=== PATIENT | male | born 1970 | race Caucasian/White ===

== ENCOUNTER 2022-01-04 10:29 | Observation (INO) | payer OTHER, SELFPAY ==
[2022-01-04] VITALS (10 sets, daily range): BP systolic 62–128; BP diastolic 49–87; PULSE 70–123; RESP 13–21; TEMP 36.5–36.7; O2SAT 94–98; BMI 33.5; BMI 31.2
--- NOTE | 2022-01-04 11:03 | XR_ITS ---
WS: [id number] Exam: XR chest 1V portable [id number] Date/Time of Exam: 01/04/2022 11:29 AM Reason For Exam: tachycardia Comparison 01/18/2014. Findings: The lungs are clear and fully expanded. Costophrenic angles are sharp. No infiltrates. Bronchovascula r relief appears normal. Cardiac silhouette is unremarkable. Bony elements are intact. XR/XR chest 1V portable [id number] IMPRESSION: Unremarkable chest radiograph.
--- NOTE | 2022-01-04 11:03 | W.ED.DIZZY ---
HPI - Dizziness General: Chief Complaint: Dizziness Stated Complaint: passing blood, weaknes, pain in arms, chest pains Time Seen by Provider: 01/04/22 11:02 History of Present Illness: HPI Narrative: Mr Bains is a 51-year-old gentleman with history of hypertension, stroke, diabetes, and remote history of gastric ulcers diagnosed on EGD who presents to the emergency department due to concern over GI bleed. He reports a few week history of dark black stools and progressive weakness with generalized malaise. He has had some lightheaded episodes and chest pain as well as muscle aches. He Course Vital Signs: Vital signs: Vital Signs Temperature 97.8 F 01/04/22 10:45 Pulse Rate 70 01/04/22 10:45 Respiratory Rate 18 01/04/22 10:45 Blood Pressure 62/49 01/04/22 10:45 Pulse Oximetry 98 01/04/22 10:45 Discharge Plan Discharge Condition: Stable Coding Level of Care Code ED Coal Equipment Operator for Rosalinda Choe
--- NOTE | 2022-01-04 11:04 | ECG_ITS ---
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 Measurements Intervals [place] Rate: 112 P: 58 CA: 150 QRS: 73 QRSD: 105 T: 146 QT: 319 QTc: 436 Interpretive Statements SINUS TACHYCARDIA NONSPECIFIC ST & T-WAVE ABNORMALITY No previous ECG available for comparison Electronically Signed On 01-05-2022 11:14:03 CDT by Letty Phelan M.D. [id number]
[2022-01-04] MEDS: pantoprazole 40 mg SDV 80 MG IVP (11:13)
[2022-01-04 11:16] LABS: Basophils # 0.1 10^3/uL (0.0-0.1); Basophils % 0.4 %; Eosinophils # 0.1 10^3/uL (0.0-0.8); Eosinophils % 0.4 %; Hematocrit 28.1 % (42.0-52.0); Hemoglobin 8.9 g/dL (11.7-16.6); Lymphocytes # 3.8 10^3/uL (0.8-4.8); Mean Corpuscular HGB Conc 31.7 g/dL (30.0-36.0); Mean Corpuscular Hemoglobin 32.6 pg (28.0-34.0); Mean Corpuscular Volume 102.9 fl (80-94); Mean Platelet Volume 9.7 fL (7.4-10.4); Monocytes # 1.3 10^3/uL (0.2-0.9); Monocytes % 8.1 %; Neutrophils # 11.14 10^3/uL (1.8-7.7); Neutrophils % 67.1 %; Nucleated Red Blood Cells % 0.1 %; Platelet Count 343 10^3/cmm (130-400); Red Blood Count 2.73 10^6/uL (4.1-5.3); Red Cell Distribution Width 13.3 % (12.1-15.1); White Blood Count 16.6 10^3/uL (4.0-10.0)
[2022-01-04] MEDS: sodium chloride 0.9% 1,000 ML 999 ML IV (11:17)
--- NOTE | 2022-01-04 11:19 | W.ED.GIBLEED ---
HPI - GI Bleed General: Chief complaint: Dizziness Stated complaint: passing blood, weaknes, pain in arms, chest pains Time Seen by Provider: 01/04/22 11:02 History of Present Illness: Mr Bains is a 51-year-old gentleman with history of hypertension, stroke, diabetes, and remote history of gastric ulcers diagnosed on EGD who presents to the emergency department due to concern over GI bleed. He reports a few week history of dark black stools and progressive weakness with generalized malaise. He has had some lightheaded episodes and chest pain as well as muscle aches. This morning he went to get up and had a near syncopal episode associated with vomiting of black coffee-ground type material. He felt significantly ill after this and has not felt well since. He reports large volume emesis once getting to the emergency department. Overall the course of symptoms has been worsening. Intensity is moderate to severe. No other specific changes in health, exacerbating, or alleviating factors identified. Patient does report history remotely of EGD but denies history of known varices. The patient does consume aspirin daily and does drink daily. Reportedly when he was not working he drank 18-30 beers per day and now is more in the 6-12 range. Patient was found to be hypotensive in triage those this improved with laying flat. Onset (ago): week(s) Pain Consistency: intermittent Severity: severe Relieving factors: none Exacerbating factors: movement Context: history of GI bleed and alcohol abuse Associated symptoms: Reports abdominal pain, nausea, vomiting and weakness Review of Systems General: Reports: 10 or more systems reviewed and unremarkable except in HPI and below GI: Reports: abdominal pain, nausea and vomiting [facility] ED PFSH: Medical History (Updated 01/07/22 @ 00:01 by ) Abdominal wall hernia Abnormal findings on esophagogastroduodenoscopy (EGD) Gastric ulcer Cervicalgia Diabetes Duodenal ulcer HTN (hypertension) Stroke Surgical History (Updated 01/06/22 @ 10:57 by Feliz Pearson MD) H/O esophagogastroduodenoscopy (~01/05/22) Social History Alcohol intake: current Physical Exam Const: COMMON NORMALS: alert GENERAL APPEARANCE: cooperative, well developed and ill appearing HENMT: COMMON NORMALS: normocephalic and atraumatic HEAD & SCALP: normocephalic and atraumatic Eye: COMMON NORMALS: conjunctivae normal CONJUNCTIVA: Yes conjunctivae normal SCLERA: sclerae normal Neck/C-Spine: COMMON NORMALS: supple GENERAL: Yes trachea midline Resp: COMMON NORMALS: clear to auscultation bilaterally EFFORT & INSPECTION: Yes able to speak in complete sentences AUSCULTATION: clear to auscultation bilaterally Cardio: COMMON NORMALS: regular rhythm RATE: tachycardic RHYTHM: regular rhythm GI: COMMON NORMALS: Soft to palpation PALPATION: Yes Soft to palpation, Yes Tenderness to palpation present (GI), No Guarding due to palpation present (GI) and No Rigid due to palpation PERCUSSION: normal to percussion RECTAL EXAM: Yes normal sphincter tone and Yes heme positive stool (Oily black stool. Performed with information assurance specialist present.) Extremity: GENERAL: Yes normal exam except as noted and No edema Neuro: COMMON NORMALS: moves all extremities SENSORIUM/ORIENTATION: Yes alert and No Orientation impaired Psych: COMMON NORMALS: mental status grossly normal and Normal thought process present THOUGHT PROCESS: Normal thought process present Course ED course: - Patient was seen and evaluated by me at bedside - Patient placed on cardiac monitors, IV access obtained - Initial evaluation notable for exam as above, ill appearance. - Labs and xrays personally interpreted by me EKG performed at 1106 interpreted by me; sinus tachycardia with nonspecific ST segment abnormalities. No STEMI. -IV fluids ordered. Given history of daily alcohol consumption and limited information regarding history Protonix, octreotide, and Rocephin ordered - Labs notable for leukocytosis, hemoglobin 8.9with macrocytosis noted. Normal INR, no use of anticoagulation. Metabolic panel with elevated BUN and elevated lactic acid. Gastric occult blood negative. - Imaging notable for no pneumothorax or lobar consolidation. CT abdomen pelvis without acute pathology identified, there is fluid distention of the stomach. Liver reported as normal morphology and size without evidence of varices. - Upon serial reexamination after treatment the patient was improved - Based on patient history, evaluation, and testing as interpreted the most likely cause of the patient's condition is upper GI hemorrhage. Discussed with GI on-call Dr. Pearson who will see the patient. - The results of ED evaluation were discussed with the patient including plan for admission due to requirement for level of care not available if discharged to prevent significant worsening/deterioration. - Admitting service was contacted and Dr Alvarez with the hospitalist service agreed to admit the patient - Patient was admitted without further deterioration or significant events. Note: Click bubbles or prepopulated kamara in note writing are used for assistance with data collection and billing and are inherently more limited than narrative and other text portions of this note. Please use narrative for additional clinical history and defer to narrative/free test for any case of contradictory information. If information appears in only free text or click bubble it should be considered present or absent as reported. Please contact note typewriter tester for clarifications of clinical information or contradictory information. MDM is a brief summary, contradictory or erroneous seeming information should be clarified and full note should be reviewed. Vital Signs: Vital signs: Vital Signs Temperature 98.1 F 01/06/22 12:06 Pulse Rate 71 01/06/22 12:06 Respiratory Rate 18 01/06/22 12:06 Blood Pressure 124/71 01/06/22 12:06 Pulse Oximetry 94 01/06/22 12:06 MDM - GI Bleed Medical Decision Making 51-year-old gentleman with history of alcohol abuse without known history of GI bleed, cirrhosis, or varices presenting with hematemesis and acute history of black stools. Initially hypotensive in triage however this improved without acute intervention. Patient noted to be anemic however no recent baseline. No evidence of cirrhosis or varices on CT scan. Black oliy guaiac positive stool present. Admitted for further management with GI consult for endoscopy.. Medical Records I reviewed the patient's medical records. Lab Data I reviewed the patient's lab results. : 01/06/22 09:15 01/06/22 03:58 Radiology Impressions Chest X-Ray 01/04/22 11:03 IMPRESSION: Unremarkable chest radiograph. Abdomen/Pelvis CT 01/04/22 11:23 IMPRESSION: 1. No acute intra-abdominal pelvic abnormalities are identified. 2. Mild inflammatory stranding in the fat through the umbilical hernia. This finding can be seen with acute fat necrosis. 3. Normal appendix. 4. No GI tract obstruction. 5. Marked fluid distention of the stomach. Consider gastroenteritis as a possible etiology. Laboratory Results WBC 16.6 10^3/uL (4.0-10.0) H 01/04/22 11:07 RBC 2.73 10^6/uL (4.1-5.3) L 01/04/22 11:07 Hgb 8.9 g/dL (11.7-16.6) L 01/04/22 11:07 Hct 28.1 % (42.0-52.0) L 01/04/22 11:07 MCV 102.9 fl (80-94) H 01/04/22 11:07 MCH 32.6 pg (28.0-34.0) 01/04/22 11:07 MCHC 31.7 g/dL (30.0-36.0) 01/04/22 11:07 RDW 13.3 % (12.1-15.1) 01/04/22 11:07 Plt Count 343 10^3/cmm (130-400) 01/04/22 11:07 MPV 9.7 fL (7.4-10.4) 01/04/22 11:07 Neut % (Auto) 67.1 % 01/04/22 11:07 Lymph % (Auto) 23.0 % 01/04/22 11:07 [place] % (Auto) 8.1 % 01/04/22 11:07 Eos % (Auto) 0.4 % 01/04/22 11:07 Baso % (Auto) 0.4 % 01/04/22 11:07 Neut # (Auto) 11.14 10^3/uL (1.8-7.7) H 01/04/22 11:07 Lymph # (Auto) 3.8 10^3/uL (0.8-4.8) 01/04/22 11:07 [place] # (Auto) 1.3 10^3/uL (0.2-0.9) H 01/04/22 11:07 Eos # (Auto) 0.1 10^3/uL (0.0-0.8) 01/04/22 11:07 Baso # (Auto) 0.1 10^3/uL (0.0-0.1) 01/04/22 11:07 Nucleated RBC % (auto) 0.1 % 01/04/22 11:07 Nucleated RBCs # 0.0 /100WBC 01/04/22 11:07 Sodium 139 mmol/L (136-145) 01/04/22 11:07 Potassium 4.3 mmol/L (3.5-5.1) 01/04/22 11:07 Chloride 106 mmol/L (98-107) 01/04/22 11:07 Carbon Dioxide 21 mmol/L (22-29) L 01/04/22 11:07 Anion Gap 16.3 (5-19) 01/04/22 11:07 BUN 49 mg/dL (6-20) H 01/04/22 11:07 Creatinine 1.0 mg/dL (0.7-1.2) 01/04/22 11:07 GFR Calculation 79.1 mL/min (90-130) L 01/04/22 11:07 Glucose 296 mg/dL (65-115) H 01/04/22 11:07 Estimat Average Glucose 105 01/04/22 11:07 Hemoglobin A1c 5.3 % (4.0-6.0) 01/04/22 11:07 Calculated Osmolality 312 mOsm/kg (285-295) H 01/04/22 11:07 Lactic Acid 5.6 mmol/L (0.5-2.2) H* 01/04/22 11:07 Calcium 9.1 mg/dL (8.5-10.5) 01/04/22 11:07 Magnesium 2.3 mg/dL (1.7-2.3) 01/04/22 11:07 Total Bilirubin 0.2 mg/dL (0.15-1.2) 01/04/22 11:07 AST 13 U/L (0-40) 01/04/22 11:07 ALT 13 U/L (0-41) 01/04/22 11:07 Alkaline Phosphatase 74 IU/L (40-130) 01/04/22 11:07 Troponin T Baseline 21 ng/L (0-15) H 01/04/22 11:07 NT-Pro-B Natriuret Pep 58 pg/mL (0-125) 01/04/22 11:07 Total Protein 5.5 g/dL (6.6-8.7) L 01/04/22 11:07 Albumin 3.7 g/dL (3.5-5.2) 01/04/22 11:07 Globulin 1.8 g/dL (1.3-4.6) 01/04/22 11:07 TSH 1.25 uIU/mL (0.27-4.20) 01/04/22 11:07 Gastric Occult Blood Negative (Negative) 01/04/22 11:46 SARS-CoV-2 Ag (Rapid) Negative (Negative) 01/04/22 11:26 Blood Type O Positive 01/04/22 11:07 Rho(D) Type Positive 01/04/22 11:07 Antibody Screen Negative 01/04/22 11:07 Crossmatch See Detail 01/04/22 11:07 Critical Care Time Critical Care Time: Critical Care Time: Yes Total Critical Care Time: 35 Attestation: Due to a high probability of clinically significant, possibly life threatening deterioration, the patient required my highest level of attention and preparedness to intervene emergently and I personally spent this critical care time directly and personally managing the patient. This critical care time included obtaining a history; examining the patient; pulse oximetry; ordering and review of laboratory and imaging studies; arranging urgent treatment with development of a management plan; evaluation of patient's response to treatment; frequent reassessment; and, discussions with other providers as applicable. It was exclusive of separately billable procedures. Primary system involved is GI/vascular Discharge Plan Discharge Patient Disposition: Admitted As Inpatient Admit Provider: Radha Alvarez Clinical Impression: Acute GI bleeding, Alcohol abuse, Leukocytosis, Acute blood loss anemia, Elevated lactic acid level Condition: Stable Discharge Diet: Cardiac Discharge Activity: Increase activity as tolerated Coding Level of Care Code ED Hotel Associate for Rosalinda Fwd Exam Comprehensive
--- NOTE | 2022-01-04 11:23 | CT_ITS ---
WS: [id number] CT ABDOMEN AND PELVIS WITH CONTRAST HISTORY: gi bleed, hematemesis, hernia, periumbilical pain TECHNIQUE: Imaging performed of the abdomen and pelvis with IV contrast. Single phase imaging of the abdomen. Coronal and sagittal reformats are submitted. All CT scans at [facility] use at [facility] one of these dose optimization techniques: automated exposure control; mA and/or kV adjustment per patient size (includes targeted exams where dose is matched to clinical indication); or iterative re construction. IV CONTRAST: Omnipaque 300; 95 mL IV. Oral contrast: No DLP: 1821.58 mGy.cm COMPARISON: 10/27/2013 Lower thorax: Long-term stability 4 mm noncalcified nodule LEFT lung base. Heart is normal size. No h iatal hernia. Liver/biliary system: Normal size with no intrahepatic dilatation. Negative portal vein. Gallbladder: Normal. No gallstones or wall thickening. No pericholecystic fluid. Pancreas: Normal size pancreas and pancreatic duct. No adjacent inflammation. Spleen: Normal size spleen. No mass or infarct. Adrenal glands: Normal. Right kidney: Normal. Left kidney: Normal. Aorta: Normal. Lymphadenopathy: None. Free fluid: None. GI tract: Stomach is markedly distended with fluid and food products. No small bowel obstruction. The appendix is normal. Colon is normal. Abdominal wall: Fat-containing umbilical hernia. There is mild stranding of the fat within the umbili tom hernia which may indicate an area of fatty necrosis. The hernia orifice is 3.2 cm. Pelvis: No free fluid or adenopathy within the pelvis. Bones: 6 mm anterolisthesis of L5 and bilateral pars defects at L5. Large dense bridging osteophyte b etween the anterior L5 and S1 vertebral bodies. Bilateral SI joint sclerosis and partial fusion. CT/CT abdomen pelvis w con* [id number] IMPRESSION: 1. No acute intra-abdominal pelvic abnormalities are identified. 2. Mild inflammatory stranding in the fat through the umbilical hernia. This f inding can be seen with acute fat necrosis. 3. Normal appendix. 4. No GI tract obstruction. 5. Marked fluid distention of the stomach. Consider gastroenteritis as a possi ble etiology.
[2022-01-04] MEDS: octreotide 100 mcg/mL SDV 50 MCG IVP (11:31)
[2022-01-04] MEDS: cefTRIAXone 1,000 MG in sodium chloride 0.9% (plus) 50 ML 100 MG IV (11:34)
[2022-01-04 11:39] LABS: Alanine Aminotransferase 13 U/L (0-41); Albumin Level 3.7 g/dL (3.5-5.2); Alkaline Phosphatase 74 IU/L (40-130); Anion Gap 16.3 (5-19); Aspartate Amino Transferase 13 U/L (0-40); Blood Urea Nitrogen 49 mg/dL (6-20); Calcium 9.1 mg/dL (8.5-10.5); Carbon Dioxide 21 mmol/L (22-29); Chloride 106 mmol/L (98-107); Globulin 1.8 g/dL (1.3-4.6); Glomerular Filtration Rate 79.1 mL/min (90-130); Glucose 296 mg/dL (65-115); Magnesium 2.3 mg/dL (1.7-2.3); Osmolality Calculated 312 mOsm/kg (285-295); Potassium 4.3 mmol/L (3.5-5.1); Sodium 139 mmol/L (136-145); Total Bilirubin 0.2 mg/dL (0.15-1.2); Total Protein 5.5 g/dL (6.6-8.7); Troponin(5th) Baseline 21 ng/L (0-15)
[2022-01-04] MEDS: octreotide 500 MCG in sodium chloride 0.9% (100 ml) 100 ML 10.1 MCG IV (11:41)
[2022-01-04 11:49] LABS: Lactic Sepsis W/Reflex 5.6 mmol/L (0.5-2.2)
[2022-01-04] MEDS: iohexol 300 mg/mL 100 mL Btl IV (11:51)
[2022-01-04 12:00] LABS: NT Pro B Type Natriuretic Pept 58 pg/mL (0-125); Thyroid Stimulating Hormone 1.25 uIU/mL (0.27-4.20)
[2022-01-04 12:10] LABS: Gastricult Occult Blood Negative (Negative)
[2022-01-04 12:16] LABS: SARS Covid-2 Antigen Negative (Negative)
[2022-01-04 12:58] LABS: Reflex Lactate Order REFLEX LACTIC ORDERD
[2022-01-04] MEDS: ondansetron 2 mg/ML SDV 2 mL 4 MG IVP (13:20)
[2022-01-04] MEDS: morphine 4 mg/mL SDV 1 mL IVP (13:21)
[2022-01-04 14:28] LABS: Troponin 5 2HR 18.04 ng/L (0-15)
[2022-01-04 14:30] LABS: Troponin 5 2HR Delta -2.96 ABS# (0-10)
--- NOTE | 2022-01-04 14:37 | PC.NURSE ---
PT REQUESTS WATER INFORMED DR. JEANNE KRAUSE TO GIVE PT ICE CHIPS. ICE CHIPS PROVIDED TO PT.
--- NOTE | 2022-01-04 14:41 | PC.NURSE ---
ATTEMPTED REPORT NURSE UNAVAILABLE.
[2022-01-04 14:49] LABS: Lactic Acid level (Lactate) 1.9 mmol/L (0.5-2.2)
--- NOTE | 2022-01-04 15:41 | PC.NURSE ---
REPORT CALLED TO NETO STREETLOG CLERK.
[2022-01-04 16:07] LABS: INR 1.02 (0.8-1.2)
--- NOTE | 2022-01-04 16:28 | PM.HP ---
Providers/Chief Complaint Admitting Physician: Radha Alvarez MD Chief Complaint: passing blood, weaknes, pain in arms, chest pains History of Present Illness Davis Bains is a 51 year old male who carries history of gastric ulcer, alcohol-related gastritis, EGD about 10 years ago which showed gastric ulcer, he also required blood transfusion at that time, presents today with chief complaint of hematemesis. Patient is stating that he is drinking 2-4 beers a day, has history of chewing tobacco as well, no previous history of UT, CHF or liver cirrhosis. No history of STDs HIV or hepatitis. He has never been diagnosed with liver cirrhosis. For last few weeks he has been noticing some numbness and tingling over his arms bilaterally, he does carry history of cervical lumbar degenerative changes, he has no chest pain on exertion sometimes as well in the past. Lately he started getting worse which she described as feeling weak and lethargic and dizzy. This morning when he woke up he was not feeling well, he called in. When he went to the bathroom his dizziness was getting worse that he had to rest in the bed which was very unusual for him. Started experiencing hematemesis, which she is describing as dark clotted blood in his vomiting. He has been noticing dark-colored stools for quite some time. He does not take ibuprofen on daily basis. No previous colonoscopies. There is family history of GI cancer. In the ER he was diagnosed with anemia hemoglobin 8.9, he is hemodynamically stable he was started on octreotide for concern of liver cirrhosis related to alcohol however no active bleeding noted in the ER In total he has had 5-6 episodes, in the ER a sample was sent however did not show occult bleeding We can turn off octreotide drip, keep him on clear liquids for now plan for EGD tomorrow, Dr. Pearson is consulted For his chest pain would recommend echo, troponin with negative delta, Review of Systems Const: Reports: chills and body aches Eyes: Denies: change in vision ENMT: Denies: throat pain Card: Reports: chest pain and pre-syncope Resp: Denies: dyspnea GI: Reports: abdominal pain, nausea and melena : Denies: flank pain Musc: Reports: neck pain, back pain and muscle cramps Skin/Breast: Denies: rash Neuro: Denies: headache(s) Psych: Reports: anxiety Endo: Denies: polyuria Freddie/Lymph: Denies: easy bruising All/Imm: Denies: urticaria Medications/Allergies Home Medications Medication Instructions Recorded Confirmed Last Taken Type aspirin-caffeine 500 mg-32.5 mg See Rx Instructions .ROUTE .COMPLEX 01/04/22 01/04/22 Unknown History tablet ([place] [employer]) Allergies Allergy/AdvReac Type Severity Reaction Status Date / Time No Known Allergies Allergy Verified 01/04/22 11:18 PFSH Acute PFSH: Medical History (Updated 01/04/22 @ 16:34 by Radha Alvarez MD) Abdominal wall hernia Abnormal findings on esophagogastroduodenoscopy (EGD) Gastric ulcer Cervicalgia Diabetes HTN (hypertension) Stroke Surgical History No significant past surgical history Social History Alcohol intake: current Vitals/I&O/Wt Last Vital Signs Temp 97.8 F 01/04/22 10:45 Pulse 104 H 01/04/22 15:00 Resp 14 01/04/22 15:00 BP 127/73 01/04/22 14:00 Pulse Ox 98 01/04/22 15:00 01/04/22 01/04/22 01/04/22 06:59 14:59 22:59 Intake Total 1050 / 1050 Balance 1050 / 1050 Weight last 48 hrs Weight 108.862 kg Physical Exam Narrative: Patient is laying comfortably in his bed Octreotide drip at the bedside Hemodynamically stable Looks dehydrated Dry cracked lips Abdomen is soft No tenderness in upper quadrants of abdomen Umbilical hernia noted No signs of peritonitis Bowel sound present S1, S2 no murmur Saturating well on room air Nonfocal neuro exam Pleasant and cooperative Data : 01/04/22 11:07 01/04/22 11:07 A&P Assessment and plan (1) Acute GI bleeding: Status: Acute (2) Alcohol abuse: Status: Acute (3) Acute blood loss anemia: Status: Acute Plan Acute blood loss anemia Upper GI bleed Hematemesis History of gastric ulcer Alcohol abuse No signs of liver cirrhosis on CT abdomen pelvis Plan for EGD tomorrow Keep him on clear liquids until midnight N.p.o. after midnight Protonix 40 IV milligrams twice daily GI cocktail Umbilical hernia no active signs of peritonitis, fat necrosis evident on CT scan with inflammatory stranding We will follow up with general surgery recommendations Bilateral hand numbness and chest pain could be related to degenerative changes of the spine We will obtain echo, EKG unremarkable, troponin unremarkable Counseled on alcohol abstinence Start thiamine, folic acid, N.p.o. after midnight Dr. 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
--- NOTE | 2022-01-04 16:58 | USCV_ITS ---
Davis Bains Age: 51 Gender: M : 1970 Exam Date: 01/04/2022 17:35 Ordering Phys: Radha Alvarez MD Technologist: Josh Griffiths Exam Location: [facility] [place] Indication: UA BP: 109 / 78 HR: 102 Rhythm: Sinus Technical Quality: Adequate MEASUREMENTS (Male / Female) Normal Values 2D ECHO LV Diastolic Diameter PLAX 3.8 cm 4.2 - 5.9 / 3.9 - 5.3 cm LV Systolic Diameter PLAX 2.7 cm IVS Diastolic Thickness 1.1 cm 0.6 - 1.0 / 0.6 - 0.9 cm IVS Systolic Thickness 1.6 cm LVPW Diastolic Thickness 1.5 cm 0.6 - 1.0 / 0.6 - 0.9 cm LVPW Systolic Thickness 1.7 cm LVOT Diameter 2.0 cm LV Ejection Fraction 2D Teich 55.0 % LV Ejection Fraction MOD 2C 67.8 % LV Ejection Fraction 2C AL 67.8 % LA Diameter 3.4 cm LA Width 3.6 cm LA Height 4.7 cm RA Width 3.1 cm RA Height 3.5 cm Aorta at Sinotubular Diameter 2.8 cm M-MODE Aortic Annulus Diameter 3.4 cm LA Ao Ratio MM 1.1 DOPPLER AV Peak Velocity 161.0 cm/s LVOT Peak Velocity 149.0 cm/s AV Area Cont Eq vti 2.6 cm squared AV Area Cont Eq pk 2.9 cm squared MV E' Velocity 9.0 cm/s TR Peak Velocity 134.9 cm/s TR Peak Gradient 7.3 mmHg TR Mean Velocity 106.1 cm/s TR Mean Gradient 4.7 mmHg TR Velocity Time Integral 24.8 cm Right Atrial Pressure 3.0 mmHg Pulmonary Artery Systolic Pressu 10.3 mmHg RV Acceleration Time 0.1 s RV Ejection Time 0.2 s RV AcT/ET 0.4 FINDINGS Left Ventricle Normal left ventricular size and systolic function, EF 71 %. Mild left ventricular hypertrophy. No regional wall motion abnormalities. Right Ventricle Normal right ventricular size and systolic function. Right Atrium The right atrium is normal in size. Left Atrium The left atrium is normal in size. Mitral Valve Thickened mitral valve. Aortic Valve The valve appears to be tricuspid. There is flow turbulence at the outflow tract. Tricuspid Valve Trace tricuspid valve regurgitation. Pulmonic Valve No gross abnormalities noted Pericardium No pericardial effusion. Aorta Normal aortic annulus size. CONCLUSIONS Normal left ventricular size and systolic function, EF 71 %. Mild left ventricular hypertrophy. No regional wall motion abnormalities. Elevated LV outflow tract velocity? Thickened mitral valve. Trace tricuspid valve regurgitation. Normal estimated pulmonary artery pressure. There is no pericardial effusion. There are no intracardiac masses. Need to repeat the LV outflow tract Doppler examination to rule out LV outflow obstruction. Dr Roxane Juarez MD FAC (Electronically Signed) Final Date: 05 January 2022 13:33 S
--- NOTE | 2022-01-04 17:04 | ECG_ITS ---
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 Measurements Intervals [place] Rate: 92 P: 39 [place]: 158 QRS: 52 QRSD: 97 T: 136 QT: 351 QTc: 436 Interpretive Statements SINUS RHYTHM POSSIBLE INFERIOR MYOCARDIAL INFARCTION , PROBABLY OLD [30 ms Q WAVE IN II/aVF] Compared to ECG 01/04/2022 11:06:07 Myocardial infarct finding now present Sinus tachycardia no longer present T-wave abnormality no longer present Electronically Signed On 01-05-2022 11:21:19 CDT by Letty Phelan M.D. [id number]
[2022-01-04 17:57] LABS: Glucose Point of Care 144 mg/dL (70-110)
[2022-01-04] MEDS: pantoprazole 40 mg SDV IVP (18:24)
[2022-01-04] MEDS: sodium chloride 0.9% 1,000 ML 75 ML IV (18:24)
[2022-01-04 19:29] LABS: Add Urine Microscopic? NO; Charge for UA Resulting for Rev
[2022-01-04 19:41] LABS: Bilirubin Urine Neg (Negative); Blood Urine Neg (Negative); Glucose Urine UA Norm (Normal); Ketones Urine Negative (Negative); Leukocyte Esterase Urine Negative (Negative); Nitrate Urine Negative (Negative); Protein Urine Neg (Negative); Specific Gravity, Urine 1.015 (1.005-1.030); Urine Appearance Clear (CLEAR); Urine Color Yellow (Yellow); Urobilinogen Urine Norm (Negative); pH Urine 5 (5-7)
[2022-01-04] MEDS: acetaminophen 500 mg Tablet PO (19:48)
[2022-01-04 21:00] LABS: Hematocrit 22.5 % (42.0-52.0); Hemoglobin 7.2 g/dL (11.7-16.6)
[2022-01-04 21:03] LABS: Glucose Point of Care 208 mg/dL (70-110)
[2022-01-04 21:20] LABS: Troponin 5 6HR 15.15 ng/L (0-15)
[2022-01-04 21:21] LABS: Troponin 5 6HR Delta -5.85 ng/L (0-12)
[2022-01-04 21:34] LABS: Estmated Average Glucose 105; Hemoglobin A1C 5.3 % (4.0-6.0)
[2022-01-05] VITALS (18 sets, daily range): BP systolic 100–134; BP diastolic 54–85; PULSE 85–101; RESP 16–20; TEMP 36.4–36.9; O2SAT 96–100
[2022-01-05] MEDS: acetaminophen 500 mg Tablet PO (02:49)
[2022-01-05 03:43] LABS: Basophils % 0.3 %; Eosinophils # 0.1 10^3/uL (0.0-0.8); Eosinophils % 1.1 %; Hematocrit 21.3 % (42.0-52.0); Hemoglobin 6.8 g/dL (11.7-16.6); Lymphocytes # 2.2 10^3/uL (0.8-4.8); Lymphocytes % 24.9 %; Mean Corpuscular HGB Conc 31.9 g/dL (30.0-36.0); Mean Corpuscular Hemoglobin 31.8 pg (28.0-34.0); Mean Corpuscular Volume 99.5 fl (80-94); Monocytes # 0.9 10^3/uL (0.2-0.9); Monocytes % 9.7 %; Neutrophils # 5.52 10^3/uL (1.8-7.7); Neutrophils % 63.4 %; Nucleated Red Blood Cells % 0.2 %; Platelet Count 223 10^3/cmm (130-400); Red Blood Count 2.14 10^6/uL (4.1-5.3); Red Cell Distribution Width 13.5 % (12.1-15.1); White Blood Count 8.7 10^3/uL (4.0-10.0)
[2022-01-05 04:05] LABS: Alanine Aminotransferase 10 U/L (0-41); Albumin Level 3.2 g/dL (3.5-5.2); Alkaline Phosphatase 48 IU/L (40-130); Anion Gap 11.2 (5-19); Aspartate Amino Transferase 14 U/L (0-40); Blood Urea Nitrogen 31 mg/dL (6-20); Carbon Dioxide 23 mmol/L (22-29); Chloride 107 mmol/L (98-107); Globulin 2.2 g/dL (1.3-4.6); Glomerular Filtration Rate 89.3 mL/min (90-130); Glucose 126 mg/dL (65-115); Magnesium 1.8 mg/dL (1.7-2.3); Osmolality Calculated 292 mOsm/kg (285-295); Potassium 4.2 mmol/L (3.5-5.1); Sodium 137 mmol/L (136-145); Total Bilirubin 0.2 mg/dL (0.15-1.2); Total Protein 5.4 g/dL (6.6-8.7)
[2022-01-05 04:07] LABS: INR 1.01 (0.8-1.2); Partial Thromboplastin Time 26.1 SECONDS (23.9-36.7); Platelet Count 223 10^3/cmm (130-400)
[2022-01-05] MEDS: sodium chloride 0.9% 1,000 ML 75 ML IV (05:29)
[2022-01-05 06:26] LABS: Glucose Point of Care 133 mg/dL (70-110)
--- NOTE | 2022-01-05 06:34 | PC.NURSE ---
Patient AAOx4, c/o burning and nerve pain in hands. HGB low in AM physician notified and orders placed for transfusion. Patient OOB to bathroom with out difficulty, no BM throughout the shift. Voiding without difficulty. VSS, no safety concerns, room clean and clutter free, call light in reach. WIll report to oncoming nurse at shift change.
[2022-01-05] MEDS: octreotide 500 MCG in sodium chloride 0.9% (100 ml) 100 ML IV (06:59)
[2022-01-05] MEDS: pantoprazole 40 mg SDV IVP ×2 (08:47→17:54)
--- NOTE | 2022-01-05 10:39 | PC.CHAP ---
Pastoral Care Encounter/Spiritual Assessment Type of Contact [] Declined balancer scale visit [] Patient/Family/Request visit [] Outpatient visit [] Follow-up visit [] Physician referral [] Code/Alert [x] Routine visit [] Staff referral [] Actively dying [] Patient sleeping [] Family support [] [] Out of room [] Palliative care [] [] Receiving care in room [] Pre-surgical visit [] Trauma [] Long length of stay [] ICU visit [] Other: Relational/Emotional Strength [x] Patient feels connected with others/family/visitors/staff [] Distress [] Loneliness/isolation [] Abandonment Spirituality of Patient []x Person of Valentina [] Attends Mandaen of their Valentina [x] Believes in Prayer [] Reads Bible or Yarsani materials [] There are Spiritual issues to be addressed Make Up Worker Interventions [x Prayer [x] Active listening [x] Non-anxious presence [x] Spiritual/emotional support [] Crisis/trauma care [] Spiritual counseling [] Bereavement support [] Provided bereavement packet [] Provided Bible/devotional materials [] Provided toy/stuffed animal, coloring book to patient or family member [] Provided Communion [] Anointing/[place] [] Salvation [x] Completed spiritual assessment [] Other: Impact on Illness or Injury [] Angry [] Fearful [] Anxious [] Often cries [] Exhaustion [] Unable to work [] Unable to attend cheondoism [] Unable to walk/stand [] Unable to read [] Unable to drive [] Unable to eat/drink [] Unable to sleep [] Unable to be with family [] Patient intubated [] Other: Summary Time spent with patient 10 min
[2022-01-05] MEDS: sodium chloride 0.9% 1,000 ML 30 ML IV (10:50)
--- NOTE | 2022-01-05 11:01 | P.ANESASSM_ITS ---
Documented by User: Pranay Hand Jr, ELECTRICAL DESIGNER 01/05/22 11:06 Pre-Anesthetic Assessment Height/Weight: Height 1.85 m Weight 107.547 kg Temp Pulse Resp BP Pulse Ox 98.5 F 90 18 129/79 98 01/05/22 10:23 01/05/22 10:23 01/05/22 10:23 01/05/22 10:23 01/05/22 10:23 Preop Diagnosis: GI Bleed Operation Date: 01/05/22 12:30 Proposed Procedures p EGD(Not Applicable) - Feliz Pearson MD Familial anesthetic complications: none Was Beta Walter taken within 24 hours: N/A Was Clonidine taken within 24 hours: N/A Last intake: Intake Last Liquid Date 01/04/22 Last Liquid Time 22:00 Last Solid Date 01/03/22 Last Intake: 22:00 Social Alcohol (12 beer) and Tobacco (chew) Exam alert, oriented x 3, clear to auscultation bilaterally and regular rate & rhythm Airway Submandibular: within normal limits Cervical ROM: within normal limits Mallampati: Class II Dentition: other (poor multiple missing decayed) Pulmonary Cough (allergies) CV/HEM Anemia and Hypertension None reported Hepatic None reported GI Gastroesophageal Reflux Disease and Peptic Ulcer Disease HX GI bleed Metabolic Diabetes Mellitus (diet controlled) and None reported Musc/skel Lower Back Pain Neuropsych Anxiety and Depression Anesthetic Plan ASA status: 3 Anesthesia: MAC Other Pertinent Information PT recieved 2 units PRBC in ED before procedure Medications/Allergies Home Medications Medication Instructions Recorded Confirmed Last Taken Type aspirin-caffeine 500 mg-32.5 mg See Rx Instructions .ROUTE .COMPLEX 01/04/22 01/04/22 Unknown History tablet ([place] Back and Body) Allergies Allergy/AdvReac Type Severity Reaction Status Date / Time No Known Allergies Allergy Verified 01/04/22 11:18 Current Medications Generic Name Dose Route Start Last Admin Trade Name Freq PRN Reason Stop Dose Admin Acetaminophen 500 mg 01/04/22 16:58 01/05/22 02:49 Acetaminophen 500 Mg Tablet PO 500 mg Q4H PRN Administration fever Sodium Chloride 1,000 mls @ 30 mls/hr 01/05/22 10:45 01/05/22 10:50 Sodium Chloride 0.9% IV 01/06/22 10:44 30 mls/hr .Q24H JOSE ANGEL Administration Insulin Human Lispro 0 unit 01/04/22 21:00 01/05/22 07:01 Insulin Lispro 100 Unit/1 Ml SUBCUT Not Given WM&BEDTIME JOSE ANGEL Protocol Pantoprazole Sodium 40 mg 01/04/22 18:00 01/05/22 08:47 Pantoprazole 40 Mg Sdv IVP 40 mg BID JOSE ANGEL Administration PFSH Anesthesia Medical History Abdominal wall hernia Abnormal findings on esophagogastroduodenoscopy (EGD) Gastric ulcer Cervicalgia Diabetes HTN (hypertension) Stroke Surgical History No significant past surgical history Social History Alcohol intake: current Data Anesthesia : 01/05/22 03:05 01/05/22 03:05 Short CBC 01/04/22 01/04/22 01/05/22 Range/Units 11:07 20:45 03:05 WBC 16.6 H 8.7 (4.0-10.0) 10^3/uL Hgb 8.9 L 7.2 L 6.8 L (11.7-16.6) g/dL Hct 28.1 L 22.5 L 21.3 L (42.0-52.0) % MCV 102.9 H 99.5 H (80-94) fl Plt Count 343 223 D (130-400) 10^3/cmm Neut % (Auto) 67.1 63.4 % Neut # (Auto) 11.14 H 5.52 (1.8-7.7) 10^3/uL 01/05/22 Range/Units 03:05 WBC (4.0-10.0) 10^3/uL Hgb (11.7-16.6) g/dL Hct (42.0-52.0) % MCV (80-94) fl Plt Count 223 (130-400) 10^3/cmm Neut % (Auto) % Neut # (Auto) (1.8-7.7) 10^3/uL BMP 01/04/22 01/05/22 11:07 03:05 Sodium 139 137 Potassium 4.3 4.2 Chloride 106 107 Carbon Dioxide 21 L 23 BUN 49 H 31 H Creatinine 1.0 0.9 Glucose 296 H 126 H Calcium 9.1 8.0 L Cardiac Enzymes 01/04/22 01/04/22 01/04/22 Range/Units 11:07 11:07 13:44 Troponin T Baseline 21 H (0-15) ng/L Troponin T 120 Minute 18.04 H (0-15) ng/L Delta Troponin T -2.96 L (0-10) ABS# Troponin T Hi Sens 6Hr (0-15) ng/L Troponin T Hi Sens 6Hr Delta (0-12) ng/L NT-Pro-B Natriuret Pep 58 (0-125) pg/mL 01/04/22 Range/Units 20:45 Troponin T Baseline (0-15) ng/L Troponin T 120 Minute (0-15) ng/L Delta Troponin T (0-10) ABS# Troponin T Hi Sens 6Hr 15.15 H (0-15) ng/L Troponin T Hi Sens 6Hr Delta -5.85 L (0-12) ng/L NT-Pro-B Natriuret Pep (0-125) pg/mL Liver Function 01/04/22 01/05/22 Range/Units 11:07 03:05 Total Bilirubin 0.2 0.2 (0.15-1.2) mg/dL AST 13 14 (0-40) U/L ALT 13 10 (0-41) U/L Alkaline Phosphatase 74 48 (40-130) IU/L Albumin 3.7 3.2 L (3.5-5.2) g/dL Urine 01/04/22 Range/Units 19:24 Urine Color Yellow (Yellow) Urine Appearance Clear (CLEAR) Urine pH 5 (5-7) Ur Specific [place] 1.015 (1.005-1.030) Urine Protein Neg (Negative) Urine Glucose (UA) Norm (Normal) Urine Ketones Negative (Negative) Urine Nitrate Negative (Negative) Urine Bilirubin Neg (Negative) Ur Leukocyte Esterase Negative (Negative) Blood Bank 01/04/22 11:07 Blood Type O Positive Rho(D) Type Positive Antibody Screen Negative COVID Results 01/04/22 11:26 SARS-CoV-2 Ag (Rapid) Negative Coags 01/04/22 01/05/22 15:05 03:05 PT 13.70 13.60 INR 1.02 1.01 APTT 26.1 Fibrinogen TNP Cardiac Studies: No Data to Display
--- NOTE | 2022-01-05 11:35 | P.CONIM_ITS ---
Providers/Reason For Consult Consulting Physician/Specialty*: General Surgery Dr. Pearson Reason for Consult*: GI bleed Requesting Physician: Hospitalist service Attending Physician: Radha Alvarez MD History of Present Illness History of Present Illness Davis Bains is a 51 year old male who presented to the ER with throwing of fresh blood and black stools for a few days prior to the ER visit. Patient denies any abdominal pain. He has not had any further hematemesis since y morning when he presented to the ER. He has had multiple EGDs in the past for gastric ulcer, alcohol-related gastritis. He had a CT which did not show any evidence of portal hypertension or cirrhosis Review of Systems General: Reports: 10 or more systems reviewed and unremarkable except in HPI and below Medications/Allergies Home Medications Medication Instructions Recorded Confirmed Last Taken Type aspirin-caffeine 500 mg-32.5 mg See Rx Instructions .ROUTE .COMPLEX 01/04/22 01/04/22 Unknown History tablet ([place] Back and Body) Allergies Allergy/AdvReac Type Severity Reaction Status Date / Time No Known Allergies Allergy Verified 01/04/22 11:18 Current Medications Generic Name Dose Route Start Last Admin Trade Name Freq PRN Reason Stop Dose Admin Acetaminophen 500 mg 01/04/22 16:58 01/05/22 02:49 Acetaminophen 500 Mg Tablet PO 500 mg Q4H PRN Administration fever Sodium Chloride 1,000 mls @ 30 mls/hr 01/05/22 10:45 01/05/22 10:50 Sodium Chloride 0.9% IV 01/06/22 10:44 30 mls/hr .Q24H JOSE ANGEL Administration Insulin Human Lispro 0 unit 01/04/22 21:00 01/05/22 07:01 Insulin Lispro 100 Unit/1 Ml SUBCUT Not Given WM&BEDTIME JOSE ANGEL Protocol Pantoprazole Sodium 40 mg 01/04/22 18:00 01/05/22 08:47 Pantoprazole 40 Mg Sdv IVP 40 mg BID JOSE ANGEL Administration PFSH Acute PFSH: Medical History Abdominal wall hernia Abnormal findings on esophagogastroduodenoscopy (EGD) Gastric ulcer Cervicalgia Diabetes HTN (hypertension) Stroke Surgical History No significant past surgical history Social History Alcohol intake: current Vitals/I&O/Wt Last Vital Signs Temp 98.3 F 01/05/22 11:33 Pulse 93 01/05/22 11:33 Resp 16 01/05/22 11:33 BP 106/61 01/05/22 11:33 Pulse Ox 99 01/05/22 11:33 01/04/22 01/05/22 01/05/22 22:59 06:59 14:59 Intake Total 73.225 / 1954.475 831.25 / 1954.475 350 / 350 Output Total 300 / 520 220 / 520 Balance -226.775 / 1434.475 611.25 / 1434.475 350 / 350 Weight last 48 hrs Weight 237 lb 1.6 oz Weight 240 lb Physical Exam Narrative: HEENT: Normocephalic Eye: Sclera /conjunctiva normal Abdomen: Soft to palpation Neurological: Oriented to place person and time Skin: Intact, no lesions appreciated on gross exam Data : 01/05/22 03:05 01/05/22 03:05 A&P Assessment and plan (1) Acute GI bleedin-year-old male who usually drinks about 10-12 beers over the weekend and drinks alcohol daily who presented with hematemesis and melena. Patient was hemodynamically stable but his hemoglobin is down to 6.8 today and he is currently receiving blood transfusion. Plan for EGD under MAC. Procedure, risks, benefits and alternatives have been discussed with the patient who wishes to proceed with surgery. Status: Acute Consult Attestations Medical Necessity Statement: As per attending physician Coding Level of Care Code Acute Pharmacy Stock Clerk for [facility] Fwd Diagnoses Acute GI bleeding K92.2
--- NOTE | 2022-01-05 11:47 | PM.PN ---
Subjective Subjective: Status post EGD, duodenal ulcer, noticed drop in hemoglobin 6.8, requested to unit PRBC No active bleeding ulcer was noted as per Dr. Pearson Patient is noncompliant any active bleeding or hematochezia, melanotic stools He does carry history of diverticulitis Vitals/I&O/Wt Last Vital Signs Temp 98.3 F 01/05/22 11:33 Pulse 93 01/05/22 11:33 Resp 16 01/05/22 11:33 BP 106/61 01/05/22 11:33 Pulse Ox 99 01/05/22 11:33 01/04/22 01/05/22 01/05/22 22:59 06:59 14:59 Intake Total 73.225 / 1123.225 831.25 / 1954.475 850 / 850 Output Total 300 / 300 220 / 520 Balance -226.775 / 823.225 611.25 / 1434.475 850 / 850 Weight last 48 hrs Weight 107.547 kg Weight 108.862 kg Physical Exam Narrative: Hemodynamically stable Pale complexion Abdomen soft Nontender Distended S1, S2 Nonfocal neuro exam Saturating well on room air No signs of edema Data : 01/05/22 03:05 01/05/22 03:05 A&P Assessment and plan (1) Dehydration: Status: Acute (2) Acute GI bleeding: Status: Acute (3) Alcohol abuse: Status: Acute (4) Leukocytosis: Status: Acute (5) Acute blood loss anemia: Status: Acute Plan Acute blood loss anemia Upper GI bleed Duodenal ulcer Continue Protonix, sucralfate Full liquid diet Abstinence from alcohol For neuropathic pain added gabapentin Acute blood loss anemia status post 2 unit PRBC, Plan to discharge him tomorrow Full code diet DVT prophylaxis contraindicated Currently SCDs Echo is pending no active chest pain Hemodynamically stable Nonsignificant troponin rise Attestations Medical Necessity Statement*: Continue medical management Time Spent in Patient Care: 30mins Coding Level of Care Code Acute Associate Art Director for g Fwd Diagnoses Dehydration E86.0 Acute GI bleeding K92.2 Alcohol abuse F10.10 Leukocytosis D72.829 Acute blood loss anemia D62
--- NOTE | 2022-01-05 11:51 | ANE.PACU2 ---
Inpatient post-anesthesia follow up: Airway intact: Yes Vital signs: Temperature 98.3 F Pulse Rate 93 Respiratory Rate 16 Blood Pressure 106/61 Pulse Oximetry 99 Oxygen Delivery Me thod Room Air Oxygen Flow Rate 6 Fraction of Inspir ed Oxygen Hydration adequate: Yes Nausea and vomiting: No Pain level: 1 Mental status: Baseline
[2022-01-05 12:36] LABS: Glucose Point of Care 120 mg/dL (70-110)
--- NOTE | 2022-01-05 13:15 | PC.NURSE ---
Patient was taken to GI for a procedure while transfusion was in progress. GI stated they completed the infusion when calling report at [phone].
[2022-01-05 13:45] LABS: Hemoglobin 8.3 g/dL (11.7-16.6)
[2022-01-05] MEDS: sucralfate 1 gm Tablet PO ×2 (16:48→20:08)
[2022-01-05] MEDS: gabapentin 300 mg Capsule PO ×2 (16:50→20:07)
[2022-01-05 17:34] LABS: Glucose Point of Care 107 mg/dL (70-110)
[2022-01-05 20:20] LABS: Glucose Point of Care 173 mg/dL (70-110)
[2022-01-05] MEDS: insulin lispro 100 unit/1 mL SUBCUT ×2 (20:31→20:38)
[2022-01-06 04:00] VITALS: BP 115/78; PULSE 95; RESP 20; TEMP 36.6; O2SAT 99
[2022-01-06 05:04] LABS: Basophils % 0.5 %; Eosinophils # 0.1 10^3/uL (0.0-0.8); Eosinophils % 2.2 %; Hematocrit 24.5 % (42.0-52.0); Hemoglobin 7.8 g/dL (11.7-16.6); Lymphocytes # 1.7 10^3/uL (0.8-4.8); Lymphocytes % 26.7 %; Mean Corpuscular HGB Conc 31.8 g/dL (30.0-36.0); Mean Corpuscular Hemoglobin 30.7 pg (28.0-34.0); Mean Corpuscular Volume 96.5 fl (80-94); Mean Platelet Volume 9.8 fL (7.4-10.4); Monocytes # 0.6 10^3/uL (0.2-0.9); Monocytes % 8.6 %; Neutrophils # 3.92 10^3/uL (1.8-7.7); Neutrophils % 61.5 %; Nucleated Red Blood Cells % 0 %; Platelet Count 184 10^3/cmm (130-400); Red Blood Count 2.54 10^6/uL (4.1-5.3); Red Cell Distribution Width 15.6 % (12.1-15.1); White Blood Count 6.4 10^3/uL (4.0-10.0)
[2022-01-06 05:34] LABS: Blood Urea Nitrogen 12 mg/dL (6-20); Carbon Dioxide 21 mmol/L (22-29); Chloride 106 mmol/L (98-107); Glomerular Filtration Rate 119.4 mL/min (90-130); Glucose 108 mg/dL (65-115); Osmolality Calculated 278 mOsm/kg (285-295); Sodium 134 mmol/L (136-145)
[2022-01-06 05:35] LABS: Anion Gap 11.2 (5-19); Potassium 4.2 mmol/L (3.5-5.1)
--- NOTE | 2022-01-06 05:48 | PC.NURSE ---
Patient resting and slept well throughout night, VSS, AAOx4, no c/o pain, good UOP. NO new events during shift and no needs, room clean and clutter free with call light in reach. WIll report to oncoming nurse at shift change.
[2022-01-06 06:28] LABS: Glucose Point of Care 112 mg/dL (70-110)
[2022-01-06 07:05] VITALS: BP 123/83; PULSE 85; RESP 18; TEMP 36.8; O2SAT 97
--- NOTE | 2022-01-06 07:54 | PC.NURSE ---
Bedside report received from Sonja RN at tis time.
--- NOTE | 2022-01-06 07:56 | PC.NURSE ---
Bedside report received from Jordana STREET at this time.
[2022-01-06] MEDS: sucralfate 1 gm Tablet PO (08:35)
[2022-01-06] MEDS: pantoprazole 40 mg SDV IVP (08:35)
[2022-01-06] MEDS: gabapentin 300 mg Capsule PO (08:35)
[2022-01-06 09:36] LABS: Hematocrit 25.8 % (42.0-52.0); Hemoglobin 8.4 g/dL (11.7-16.6)
--- NOTE | 2022-01-06 10:55 | P.PN_ITS ---
Subjective Subjective: Patient has been doing well, still has melena but denies any hematemesis or abdominal pain, tolerating her diet Medications: Reviewed: Yes Vitals/I&O/Wt Last Vital Signs Temp 98.2 F 01/06/22 07:05 Pulse 85 01/06/22 07:05 Resp 18 01/06/22 07:05 BP 123/83 01/06/22 07:05 Pulse Ox 97 01/06/22 07:05 01/05/22 01/06/22 01/06/22 22:59 06:59 14:59 Intake Total 1720 / 2810 120 / 2810 720 / 720 Balance 1720 / 2810 120 / 2810 720 / 720 Weight last 48 hrs Weight 237 lb 1.6 oz Physical Exam Narrative: Abdomen: Soft, Data : 01/06/22 09:15 01/06/22 03:58 Micro: Microbiology 01/05/22 17:10 Occult Blood (FIT) - Final Stool Routine Collection A&P Assessment and plan (1) Duodenal ulcer: 51-year-old male with history of alcoholism who underwent EGD yesterday which showed duodenal ulcer which is not actively bleeding. Advance to GI soft diet DC home today on PPI twice daily and Carafate 3 times daily Follow-up 2 weeks to schedule screening colonoscopy as well as follow-up EGD Patient does not have a PCP Status: Acute Attestations Medical Necessity Statement*: GI bleed, DC home today Coding Level of Care Code Acute Data Processor for [facility] Diagnoses Duodenal ulcer K26.9
[2022-01-06 11:04] VITALS: BP 124/71; PULSE 71; RESP 18; TEMP 36.7; O2SAT 94
--- NOTE | 2022-01-06 11:08 | P.DS_ITS ---
Discharge Providers Date of Admission: 01/04/22 13:07 Date of Discharge: January 06, 2022 Attending Provider at Admission: Radha Alvarez MD Attending Provider at Discharge: Radha Alvarez MD Diagnoses at Discharge Discharge Diagnosis (1) Duodenal ulcer: Status: Acute Reason for Visit Reason for Visit: passing blood, weaknes, pain in arms, chest pains Hospital Course Hospital Course See my admitting note Davis Bains is a 51 year old male who carries history of gastric ulcer, alcohol-related gastritis, EGD about 10 years ago which showed gastric ulcer, he also required blood transfusion at that time, presents today with chief complaint of hematemesis.? Patient is stating that he is drinking 2-4 beers a day, has history of chewing tobacco as well, no previous history of VT, CHF or liver cirrhosis.? No history of STDs HIV or hepatitis.? He has never been diagnosed with liver cirrhosis.? For last few weeks he has been noticing some numbness and tingling over his arms bilaterally, he does carry history of cervical lumbar degenerative changes, he has no chest pain on exertion sometimes as well in the past.? Lately he started getting worse which she described as feeling weak and lethargic and dizzy.? This morning when he woke up he was not feeling well, he called in.? When he went to the bathroom his dizziness was getting worse that he had to rest in the bed which was very unusual for him.? Started experiencing hematemesis, which she is describing as dark clotted blood in his vomiting.? He has been noticing dark-colored stools for quite some time.? He does not take ibuprofen on daily basis.? No previous colonoscopies.? There is family history of GI cancer. In the ER he was diagnosed with anemia hemoglobin 8.9, he is hemodynamically stable he was started on octreotide for concern of liver cirrhosis related to alcohol however no active bleeding noted in the ER In total he has had 5-6 episodes, in the ER a sample was sent however did not show occult bleeding We can turn off octreotide drip, keep him on clear liquids for now plan for EGD tomorrow, Dr. Pearson is consulted For his chest pain would recommend echo, troponin with negative delta, Hospital course Patient was admitted for management evaluation of upper GI bleed acute blood loss anemia, he received 2 unit PRBC, EGD showed duodenal ulcer, GERD, biopsy was taken, histopathological diagnosis pending, his hemoglobin stayed stable after blood transfusion and EGD. He is not complaining of active abdominal pain. He has been noticing intermittent black tarry stools. He does carry history of diverticulitis in the past, no active bright bleed per rectum, at the time of discharge he will get sucralfate and omeprazole, aspirin strictly contraindicated. No signs of liver cirrhosis on CT abdomen pelvis. He drinks 4-6 beers on daily basis. He was counseled on alcohol abstinence. Ventral hernia without signs of SBO. For his bilateral hand numbness related to cervical radiculopathy I have added gabapentin. updated, he will follow up with Dr. 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 He is being discharged in stable condition. Patient will follow up with Dr. Pearson for colonoscopy and EGD. We will give him new PCP appointment as well Physical Exam Narrative: Hemodynamically stable Abdomen soft Nontender non Distended S1, S2 Nonfocal neuro exam Saturating well on room air No signs of edema Discharge Data Studies Completed and Pending Completed Studies During Hospitalization Category Date Time Status CT abdomen pelvis w con* [id number] Urgent Cat Scan 01/04/22 11:23 Completed XR chest 1V portable [id number] Urgent Exams 01/04/22 11:03 Completed CV. echo complete* [id number] Routine Ultrasound 01/04/22 16:58 Completed Pending at discharge Category Date Time Status Miscellaneous Test Routine Lab 01/05/22 03:05 Received PRBC [Leukocyte Reduced RBC] Routine Lab 01/05/22 04:44 Results Type and Screen Stat Lab 01/04/22 11:07 Results Pathology: Surgical [PTH] Routine Pth 01/05/22 11:25 Received Radiology Impressions Chest X-Ray 01/04/22 11:03 IMPRESSION: Unremarkable chest radiograph. Abdomen/Pelvis CT 01/04/22 11:23 IMPRESSION: 1. No acute intra-abdominal pelvic abnormalities are identified. 2. Mild inflammatory stranding in the fat through the umbilical hernia. This finding can be seen with acute fat necrosis. 3. Normal appendix. 4. No GI tract obstruction. 5. Marked fluid distention of the stomach. Consider gastroenteritis as a possible etiology. Laboratory Results WBC 6.4 10^3/uL (4.0-10.0) 01/06/22 03:58 RBC 2.54 10^6/uL (4.1-5.3) L 01/06/22 03:58 Hgb 8.4 g/dL (11.7-16.6) L 01/06/22 09:15 Hct 25.8 % (42.0-52.0) L 01/06/22 09:15 MCV 96.5 fl (80-94) H 01/06/22 03:58 MCH 30.7 pg (28.0-34.0) 01/06/22 03:58 MCHC 31.8 g/dL (30.0-36.0) 01/06/22 03:58 RDW 15.6 % (12.1-15.1) H 01/06/22 03:58 Plt Count 184 10^3/cmm (130-400) 01/06/22 03:58 MPV 9.8 fL (7.4-10.4) 01/06/22 03:58 Neut % (Auto) 61.5 % 01/06/22 03:58 Lymph % (Auto) 26.7 % 01/06/22 03:58 Delta % (Auto) 8.6 % 01/06/22 03:58 Eos % (Auto) 2.2 % 01/06/22 03:58 Baso % (Auto) 0.5 % 01/06/22 03:58 Neut # (Auto) 3.92 10^3/uL (1.8-7.7) 01/06/22 03:58 Lymph # (Auto) 1.7 10^3/uL (0.8-4.8) 01/06/22 03:58 Delta # (Auto) 0.6 10^3/uL (0.2-0.9) 01/06/22 03:58 Eos # (Auto) 0.1 10^3/uL (0.0-0.8) 01/06/22 03:58 Baso # (Auto) 0.0 10^3/uL (0.0-0.1) 01/06/22 03:58 Nucleated RBC % (auto) 0 % 01/06/22 03:58 Nucleated RBCs # 0.0 /100WBC 01/06/22 03:58 PT 13.60 SECONDS (12.1-14.9) 04/01/22 03:05 INR 1.01 (0.8-1.2) 01/05/22 03:05 APTT 26.1 SECONDS (23.9-36.7) 01/05/22 03:05 Fibrinogen TNP 01/05/22 03:05 Sodium 134 mmol/L (136-145) L 01/06/22 03:58 Potassium 4.2 mmol/L (3.5-5.1) 01/06/22 03:58 Chloride 106 mmol/L (98-107) 01/06/22 03:58 Carbon Dioxide 21 mmol/L (22-29) L 01/06/22 03:58 Anion Gap 11.2 (5-19) 01/06/22 03:58 BUN 12 mg/dL (6-20) 01/06/22 03:58 Creatinine 0.7 mg/dL (0.7-1.2) 01/06/22 03:58 GFR Calculation 119.4 mL/min (90-130) 01/06/22 03:58 Glucose 108 mg/dL (65-115) 01/06/22 03:58 POC Glucose 112 mg/dL (70-110) H 01/06/22 06:18 Estimat Average Glucose 105 01/04/22 11:07 Hemoglobin A1c 5.3 % (4.0-6.0) 01/04/22 11:07 Calculated Osmolality 278 mOsm/kg (285-295) L 01/06/22 03:58 Lactic Acid 5.6 mmol/L (0.5-2.2) H* 01/04/22 11:07 Lactic Acid (Sepsis) 1.9 mmol/L (0.5-2.2) 01/04/22 14:21 Calcium 8.0 mg/dL (8.5-10.5) L 01/06/22 03:58 Magnesium 1.8 mg/dL (1.7-2.3) 01/05/22 03:05 Total Bilirubin 0.2 mg/dL (0.15-1.2) 01/05/22 03:05 AST 14 U/L (0-40) 01/05/22 03:05 ALT 10 U/L (0-41) 01/05/22 03:05 Alkaline Phosphatase 48 IU/L (40-130) 01/05/22 03:05 Troponin T Baseline 21 ng/L (0-15) H 01/04/22 11:07 Troponin T 120 Minute 18.04 ng/L (0-15) H 01/04/22 13:44 Delta Troponin T -2.96 ABS# (0-10) L 01/04/22 13:44 Troponin T Hi Sens 6Hr 15.15 ng/L (0-15) H 01/04/22 20:45 Troponin T Hi Sens 6Hr Delta -5.85 ng/L (0-12) L 01/04/22 20:45 NT-Pro-B Natriuret Pep 58 pg/mL (0-125) 01/04/22 11:07 Total Protein 5.4 g/dL (6.6-8.7) L 01/05/22 03:05 Albumin 3.2 g/dL (3.5-5.2) L 01/05/22 03:05 Globulin 2.2 g/dL (1.3-4.6) 01/05/22 03:05 TSH 1.25 uIU/mL (0.27-4.20) 01/04/22 11:07 Urine Color Yellow (Yellow) 01/04/22 19:24 Urine Appearance Clear (CLEAR) 01/04/22 19:24 Urine pH 5 (5-7) 01/04/22 19:24 Ur Specific [place] 1.015 (1.005-1.030) 01/04/22 19:24 Urine Protein Neg (Negative) 01/04/22 19:24 Urine Glucose (UA) Norm (Normal) 01/04/22 19:24 Urine Ketones Negative (Negative) 01/04/22 19:24 Urine Blood Neg (Negative) 01/04/22 19:24 Urine Nitrate Negative (Negative) 01/04/22 19:24 Urine Bilirubin Neg (Negative) 01/04/22 19:24 Urine Urobilinogen Norm mg/dL (Negative) 01/04/22 19:24 Ur Leukocyte Esterase Negative (Negative) 01/04/22 19:24 Gastric Occult Blood Negative (Negative) 01/04/22 11:46 SARS-CoV-2 Ag (Rapid) Negative (Negative) 01/04/22 11:26 Blood Type O Positive 01/04/22 11:07 Rho(D) Type Positive 01/04/22 11:07 Antibody Screen Negative 01/04/22 11:07 Crossmatch See Detail 01/04/22 11:07 Vitals Last Vital Signs Temp 98.1 F 01/06/22 11:04 Pulse 71 01/06/22 11:04 Resp 18 01/06/22 11:04 BP 124/71 01/06/22 11:04 Pulse Ox 94 01/06/22 11:04 Discharge Plan Discharge Patient Disposition: Home Condition: Stable Prescriptions: New sucralfate 1 gram Tablet 1 g PO TID Qty: 90 3RF acetaminophen 500 mg Tablet 500 mg PO Q4H PRN (Reason: fever) Qty: 60 0RF gabapentin 300 mg Capsule 300 mg PO TID Qty: 90 1RF omeprazole 20 mg capsule,delayed release(DR/EC) 20 mg PO DAILY Qty: 120 4RF Discontinued [place] [facility] [employer] 500-32.5 mg Tablet See Rx Instructions .ROUTE .COMPLEX 0RF Rx Instructions: 3 TO 4 TABS PO QAM AND 3 TO 4 TABS AT NOON Discharge Orders: Discharge Order (Routine); Ordered 01/06/22 Ordered By: Radha Alvarez Other Ambulatory Orders: Complete Blood Count w/Auto (Routine) Timeframe: 3 Days Location: Determined by Patient Ordered By: Radha Alvarez Referrals: Feliz Pearson MD [Physician] - 2 weeks (Please call Dr. Pearson's office on Saturday and schedule an appointment to be seen within the next 2 weeks.) Michel Ragsdale DO [Physician] - 4-7 days (new pcp appt) Discharge Diet: Cardiac Discharge Activity: Increase activity as tolerated Patient Instructions: Sucralfate (By mouth), Acetaminophen (By mouth), Omeprazole (By mouth), Gabapentin (By mouth), Gastrointestinal Bleeding (DC), Dehydration (DC), GI Discharge Instructions, Opioid Safety Activity Restrictions/Additional Instructions: No aspirin at all that can exacerbate your duodenal ulcer. For pain take Tylenol, for neuropathic pain I have prescribed you gabapentin. He will follow up with Dr. Pearson within 2 weeks. Take sucralfate and omeprazole Stand Alone Forms: Work/School Release Discharge Attestations Time Spent in Discharge Care*: less than 30 min Quality Metrics Clinical Quality Measures [ No reported AMI, CVA or VTE this stay] Coding Level of Care Code Acute Chg FW DC note Diagnoses Duodenal ulcer K26.9
[2022-01-06 11:26] LABS: Glucose Point of Care 141 mg/dL (70-110)
[2022-01-06 12:06] VITALS: BP 124/71; PULSE 71; RESP 18; TEMP 36.7; O2SAT 94
== END 2022-01-06 12:10 | disposition home or self-care (01) ==
LOC: ER 14:23 → MEDSURG 14:38
PROVIDERS: Internal Medicine; Surgery; Admitting Provider Internal Medicine; Emergency Provider Emergency Medicine; Visit Provider Internal Medicine
PROC: 0DJ08ZZ Inspection of Upper Intestinal Tract, Via Natural or Artificial Opening Endoscopic (ICD-10-PCS; CPT 43235; principal; 2022-01-05 12:30)
DX: K26.9 Duodenal ulcer, unspecified as acute or chronic, without hemorrhage or perforation (principal); E86.0 Dehydration; K92.2 Gastrointestinal hemorrhage, unspecified; F10.10 Alcohol abuse, uncomplicated; D72.829 Elevated white blood cell count, unspecified; D62 Acute posthemorrhagic anemia; I10 Essential (primary) hypertension; Z79.82 Long term (current) use of aspirin; Z86.73 Personal history of transient ischemic attack (TIA), and cerebral infarction without residual deficits; K20.90 Esophagitis, unspecified without bleeding; E11.9 Type 2 diabetes mellitus without complications
CPT/HCPCS: 36415; 36416; 36430; 43239; 71045; 74177; 80048; 80053; 81003; 82271; 82274; 82962; 83036; 83605; 83735; 83880; 84443; 84484; 85014; 85018; 85025; 85049; 85384; 85610; 85730; 86850; 86900; 86920; 87426; 88305; 88342; 93005; 93306; 96365; 96366; 96367; 96372; 96375; 96376; 99285; C9113; G0378; J0696; J1815; J2270; J2354; J2405; J2704; J7030; P9016; Q9967

== ENCOUNTER 2022-02-21 08:53 | Day surgery (SDC) | payer SELFPAY ==
[2022-02-19 08:42] VITALS: BMI 30.3
[2022-02-21 09:32] VITALS: BP 141/91; PULSE 82; RESP 18; TEMP 36.1; O2SAT 96
[2022-02-21] MEDS: sodium chloride 0.9% 1,000 ML 30 ML IV (09:52)
--- NOTE | 2022-02-21 09:55 | ANES.PREANE2 ---
Pre-Anesthetic Assessment Height/Weight: Height 1.85 m Weight 104.326 kg Temp Pulse Resp BP Pulse Ox 97.0 F L 82 18 141/91 96 02/21/22 09:32 02/21/22 09:32 02/21/22 09:32 02/21/22 09:32 02/21/22 09:32 Preop Diagnosis: upper gi symptoms Operation Date: 02/21/22 10:30 Proposed Procedures p EGD 50095/88263/k26.9/z12.11(Not Applicable) - Feliz Pearson MD s Colonoscopy(Not Applicable) - Feliz Pearson MD Familial anesthetic complications: none Was Beta Walter taken within 24 hours: N/A Was Clonidine taken within 24 hours: N/A Last intake: Intake Last Liquid Date 02/20/22 Last Liquid Time 22:00 Last Solid Date 02/19/22 Social Alcohol (up to 10 to 12 beers nightly) and Tobacco (chews) Exam alert, oriented x 3, clear to auscultation bilaterally and regular rate & rhythm Airway Mallampati: Class II Pulmonary None reported CV/HEM Hypertension None reported Hepatic None reported GI Gastroesophageal Reflux Disease and Peptic Ulcer Disease Metabolic Diabetes Mellitus [facility] [place] None reported Neuropsych None reported Anesthetic Plan ASA status: 3 Anesthesia: MAC Risk of > 500 ml blood loss (7ml/kg in children): No Medications/Allergies Home Medications Medication Instructions Recorded Confirmed Last Taken Type omeprazole 20 mg capsule,delayed 20 mg PO DAILY #120 cap 01/06/22 02/19/22 Unknown Rx release Allergies Allergy/AdvReac Type Severity Reaction Status Date / Time No Known Allergies Allergy Verified 02/21/22 09:26 Current Medications Generic Name Dose Route Start Last Admin Trade Name Freq PRN Reason Stop Dose Admin Sodium Chloride 1,000 mls @ 30 mls/hr 02/21/22 09:15 02/21/22 09:52 Sodium Chloride 0.9% IV 02/22/22 09:14 30 mls/hr .Q24H JOSE ANGEL Administration PFSH Anesthesia Medical History Cervicalgia Diabetes Duodenal ulcer HTN (hypertension) Stroke Surgical History H/O esophagogastroduodenoscopy (~01/05/22) Social History Smoking and tobacco status: current every day smoker Alcohol intake: current Data Anesthesia Cardiac Studies: Echocardiogram 01/04/22
--- NOTE | 2022-02-21 10:48 | P.HP_ITS ---
Same Day Surgery H&P Indication for Procedure/HPI DATE OF PROCEDURE: February 21, 2022 CHIEF COMPLAINT/INDICATIONFOR SURGICAL PROCEDURE: egd/colon PREOP DIAGNOSIS: upper gi symptoms PLANNED PROCEDURE: Operation Date: 02/21/22 10:30 Proposed Procedures p EGD [id number]/k26.9/z12.11(Not Applicable) - Feliz Pearson MD s Colonoscopy(Not Applicable) - Feliz Pearson MD Medications/Allergies* Allergies/Adverse Reactions Allergy/AdvReac Type Severity Reaction Status Date / Time No Known Allergies Allergy Verified 02/21/22 09:26 Current Medications: Generic Name Dose Route Start Last Admin Trade Name Freq PRN Reason Stop Dose Admin Sodium Chloride 1,000 mls @ 30 mls/hr 02/21/22 09:15 02/21/22 09:52 Sodium Chloride 0.9% IV 02/22/22 09:14 30 mls/hr .Q24H JOSE ANGEL Administration Pertinent History/Comorbid Conditions* Medical History (Updated 01/16/22 @ 12:46 by Feliz Pearson MD) Cervicalgia Diabetes Duodenal ulcer HTN (hypertension) Stroke Surgical History (Updated 01/06/22 @ 10:57 by Feliz Pearson MD) H/O esophagogastroduodenoscopy (~01/05/22) Social History Smoking and tobacco status: current every day smoker Alcohol intake: current Pertinent Exam Findings alert, oriented x 3 and regular rate & rhythm Recommendations Surgery/Procedure today Coding Level of Care Code Acute Usability Strategist for Rosalinda Choe
[2022-02-21 11:25] VITALS: BP 126/84; PULSE 84; RESP 16; O2SAT 95
[2022-02-21 11:33] VITALS: BP 119/81; PULSE 79; RESP 16; O2SAT 94
[2022-02-21 11:41] VITALS: BP 121/87; PULSE 73; RESP 16; O2SAT 95
--- NOTE | 2022-02-21 13:43 | ANE.PACU2 ---
Inpatient post-anesthesia follow up: Airway intact: Yes Vital signs: Temperature 97.0 F Pulse Rate 73 Respiratory Rate 16 Blood Pressure 121/87 Pulse Oximetry 95 Oxygen Delivery Me thod Room Air Oxygen Flow Rate 3 Fraction of Inspir ed Oxygen Hydration adequate: Yes Nausea and vomiting: No Pain level: 1 Mental status: Baseline
== END 2022-02-21 11:50 | disposition home or self-care (01) ==
PROVIDERS: Visit Provider Surgery
PROC: 0DJ08ZZ Inspection of Upper Intestinal Tract, Via Natural or Artificial Opening Endoscopic (ICD-10-PCS; CPT 43235; principal; 2022-02-21 10:30)
PROC: 0DJD8ZZ Inspection of Lower Intestinal Tract, Via Natural or Artificial Opening Endoscopic (ICD-10-PCS; CPT 45378; 2022-02-21 10:30)
DX: Z12.11 Encounter for screening for malignant neoplasm of colon (principal); Z87.11 Personal history of peptic ulcer disease; K64.8 Other hemorrhoids; K29.70 Gastritis, unspecified, without bleeding; F17.220 Nicotine dependence, chewing tobacco, uncomplicated; I10 Essential (primary) hypertension; K21.9 Gastro-esophageal reflux disease without esophagitis; E11.9 Type 2 diabetes mellitus without complications; Z86.73 Personal history of transient ischemic attack (TIA), and cerebral infarction without residual deficits
CPT/HCPCS: 43235; 45378; J2704; J3010; J7030

== ENCOUNTER 2022-04-20 12:57 | Emergency (ER) | payer SELFPAY ==
[2022-04-20 13:05] VITALS: BP 145/111; PULSE 74; RESP 16; TEMP 36.1; O2SAT 99
--- NOTE | 2022-04-20 13:10 | XR_ITS ---
WS: [id number] Right arm and humerus, 2 views, 04/20/2022 Clinical Data: fall Comparison: None. Findings: There is an oblique fracture of the midshaft of the right humerus. The visualized right elbow: Right shoulder show no abnormalities. The soft tissues are normal. XR/[place] [id number] Impression: Midshaft fracture of the right humerus.
--- NOTE | 2022-04-20 13:30 | W.ED.EXTPRO ---
HPI - Extremity Problem General: Chief complaint: Extremity Injury, Upper Stated complaint: Fall - Right arm pain Time Seen by Provider: 04/20/22 13:29 History of Present Illness: Mr. Bains is a 51-year-old gentleman without significant past medical history presents to the emergency department with fall with arm injury. He was working on a metal roof when he slipped and fell onto the one of the ridges on the metal corrugated roof. He did not fall off the roof. He immediately had significant pain and deformity to the right upper arm. Mild associated tingling and throbbing sensation. Intensity symptoms is moderate to severe. Course has persisted. He was placed in sling in triage. Does have a history of multiple orthopedic injuries though no reported history of prior humerus injury. Otherwise has been at baseline health. No other specific changes in health, exacerbating, or alleviating factors identified. Onset (ago): minute(s) Pain Consistency: constant Location: right and upper extremity Quality: stabbing and aching Radiation: proximal Exacerbating factors: range of motion and palpation Review of Systems General: Reports: 10 or more systems reviewed and unremarkable except in HPI and below PFSH ED PFSH: Medical History Cervicalgia Diabetes Duodenal ulcer HTN (hypertension) Stroke Surgical History H/O esophagogastroduodenoscopy (~01/05/22) H/O esophagogastroduodenoscopy (02/21/22) Status post colonoscopy (02/21/22) Social History Smoking and tobacco status: current every day smoker Alcohol intake: current Physical Exam Const: COMMON NORMALS: alert GENERAL APPEARANCE: cooperative and well developed HENMT: COMMON NORMALS: normocephalic and atraumatic HEAD & SCALP: normocephalic and atraumatic OTHER: No werner signs or raccoon eyes. No hemotympanum. No otorrhea or rhinorrhea. Jaw alignment normal. Dentition baseline. No obvious bony step-offs. No septal hematoma. No evidence of ocular entrapment. Eye: COMMON NORMALS: conjunctivae normal CONJUNCTIVA: Yes conjunctivae normal SCLERA: sclerae normal Neck/C-Spine: COMMON NORMALS: supple GENERAL: Yes trachea midline Resp: COMMON NORMALS: normal respiratory effort EFFORT & INSPECTION: Yes able to speak in complete sentences Cardio: COMMON NORMALS: regular rate and regular rhythm RATE: regular rate RHYTHM: regular rhythm GI: COMMON NORMALS: Soft to palpation PALPATION: Yes Soft to palpation and No Tenderness to palpation present (GI) PERCUSSION: normal to percussion Extremity: NARRATIVE EXTREMITY EXAM: Right upper extremity held in adduction flexed at the elbow he has tenderness to palpation in the mid humerus region. Distal CMS is intact. GENERAL: Yes normal exam except as noted and No edema Neuro: COMMON NORMALS: moves all extremities SENSORIUM/ORIENTATION: Yes alert and No Orientation impaired Psych: COMMON NORMALS: mental status grossly normal and Normal thought process present THOUGHT PROCESS: Normal thought process present Procedures Procedural Sedation ASA Class: I Preparation: child monitor applied, pulse oximeter, supplemental O2 applied, suction/airway equipment at bedside and IV secured IV Propofol dose (mg): 200 Patient Tolerated Procedure: well and no complications Complications: none Additional Comments: initial 60 mg of propofol followed by additional aliquots for desired therapeutic effects. Course ED course: - Patient was seen and evaluated by me at bedside - Patient placed on cardiac monitors, IV access obtained - Initial evaluation notable for exam as above - xrays personally interpreted by me - analgesia given - Imaging notable for displaced humerus fracture - discussed with orthopedics on-call who recommended coaptation splint. - Initially attempted placement with analgesia however patient did not tolerate this and at this point informed consent for procedural sedationwas obtained and subsequently was performed. - post splint xrays not significantly improved however during splint fracture would not remain in stable reduction. Likely will need operative intervention. - Upon serial reexamination after treatment the patient was improved with analgesia - Based on patient history, evaluation, and testing as interpreted the most likely cause of the patient's condition is fall with humerus fracture - The results of ED evaluation were discussed with the patient including prescriptions and/or symptomatic cares (if applicable) including appropriate and responsible use, followup plan, and return precautions. The patient verbalized understanding and felt safe for discharge. - Patient discharged in satisfactory condition. Note: Click bubbles or prepopulated kamara in note writing are used for assistance with data collection and billing and are inherently more limited than narrative and other text portions of this note. Please use narrative for additional clinical history and defer to narrative/free test for any case of contradictory information. If information appears in only free text or click bubble it should be considered present or absent as reported. Please contact note lyric writer for clarifications of clinical information or contradictory information. MDM is a brief summary, contradictory or erroneous seeming information should be clarified and full note should be reviewed. Vital Signs: Vital signs: Vital Signs Temperature 97.0 F L 04/20/22 13:05 Pulse Rate 80 04/20/22 18:53 Respiratory Rate 16 04/20/22 19:05 Blood Pressure 132/83 04/20/22 18:53 Pulse Oximetry 97 04/20/22 18:53 MDM - Extremity (Nontraumatic) Medical Decision Making 51 yo male presenting with arm pain after fall. Midshaft humerus fracture. Patient placed in coaptation splint. Completely recovered from procedure sedation. Satisfactory for outpatient orthopedics followup. Medical Records I reviewed the patient's medical records. Lab Data I reviewed the patient's lab results. Radiology Impressions Humerus X-Ray 04/20/22 16:59 IMPRESSION: Unchanged alignment of a mildly displaced mid humeral diaphyseal fracture. Discharge Plan Discharge Patient Disposition: Home Clinical Impression: Fracture, humerus closed, shaft, Fall Condition: Stable Prescriptions: New oxycodone 5 mg tablet 5 mg PO Q4H PRN (Reason: pain) Qty: 20 0RF ondansetron 4 mg tablet,disintegrating 4 mg PO Q8H PRN (Reason: nausea and vomiting) Qty: 15 0RF methocarbamol 750 mg tablet 750 mg PO TID PRN (Reason: arm pain) Qty: 10 0RF No Action meloxicam 15 mg tablet 15 mg PO DAILY Qty: 30 0RF (DME) Humeral fracture brace See Rx Instructions .Route .MEDSUPPLY Qty: 1 0RF Rx Instructions: As directed hydrocodone-acetaminophen 5-325 mg tablet 1 tab PO Q4H PRN (Reason: pain) Qty: 20 0RF omeprazole 20 mg capsule,delayed release(DR/EC) 20 mg PO DAILY PRN (Reason: Acid Reflux) 0RF Discharge Orders: Discharge ED (Routine); Ordered 04/20/22 Ordered By: Kb Smallwood Discharge Diet: Usual diet Discharge Activity: Limit activity as instructed Patient Instructions: Arm Fracture in Adults (ED), Splint Care (ED), Opioid Safety Activity Restrictions/Additional Instructions: Thank you for visiting the emergency department. You were seen and evaluated for fall. You have a midshaft oblique humerus fracture with displacement. This was splinted at bedside and requires outpatient follow-up. I will message case management for follow-up with Dr. Barber however if you do not hear from them by Saturday afternoon please call and ask for the orthopedics department for scheduled follow-up. Please take Tylenol and ibuprofen for pain. Additionally I will prescribe oxycodone. Please return to the emergency department for uncontrolled pain, any new sensory or motor changes, discoloration/purple in your fingers, or anything else that you are concerned about a feel needs emergency department evaluation. Coding Level of Care Code ED Slitter And Cutter Operator for Rosalinda Choe
[2022-04-20 14:01] VITALS: RESP 16
[2022-04-20] MEDS: morphine 4 mg/mL SDV 1 mL IVP ×2 (14:01→18:09)
[2022-04-20] MEDS: ondansetron 2 mg/ML SDV 2 mL 4 MG IVP (14:01)
[2022-04-20 15:08] VITALS: RESP 16
[2022-04-20] MEDS: diazePAM 2 mg Tablet PO (15:08)
[2022-04-20] MEDS: HYDROmorphone 1 mg/mL INJ 1 mL 0.5 MG IVP (15:08)
--- NOTE | 2022-04-20 16:36 | PC.NURSE ---
rt rn x2, and dr. tinsley at bedside preparing to perform sedation.
[2022-04-20] MEDS: propofol 10 mg/mL SDV 20 mL IVP (16:38)
--- NOTE | 2022-04-20 16:40 | PC.NURSE ---
splint applied by dr. tinsley assisted by myself.
--- NOTE | 2022-04-20 16:52 | PC.NURSE ---
pt is a&ox4 answering questions appropriately.
--- NOTE | 2022-04-20 16:59 | XRR_ITS ---
PROCEDURE INFORMATION: Exam: XR Right Humerus Exam date and time: 04/20/2022 5:11 PM Age: 51 years old Clinical indication: Injury or trauma; Other: Post splint; Fracture, traumatic injury; Closed fracture; Humerus; Right TECHNIQUE: Imaging protocol: Radiologic exam of the Right humerus. Views: 2 or more views. COMPARISON: [place] [id number] 04/20/2022 1:24 PM FINDINGS: Bones/joints: Displaced mid humeral diaphyseal fracture. Satisfactory glenohumeral alignment. The elbow is grossly unremarkable but suboptimally evaluated. Soft tissues: Visible soft tissues are unremarkable. XR/[place] [id number] IMPRESSION: Unchanged alignment of a mildly displaced mid humeral diaphyseal fracture.
[2022-04-20] MEDS: ketorolac 30 mg/mL INJ 15 MG IVP (18:08)
[2022-04-20] MEDS: methocarbamol 750 mg Tablet PO (18:08)
[2022-04-20 18:09] VITALS: RESP 16
[2022-04-20 18:53] VITALS: BP 132/83; PULSE 80; RESP 16; O2SAT 97
[2022-04-20 19:05] VITALS: RESP 16
[2022-04-20] MEDS: ondansetron 4 MG Tablet 8 MG PO (19:05)
[2022-04-20] MEDS: oxyCODONE 5 mg IR Tab/Cap 20 MG PO (19:05)
--- NOTE | 2022-04-23 10:54 | DCPLANNER ---
Addendum entered by Coco Sahni 05/01/22 13:43: Patient had a follow up appointment scheduled for 04.25.[address] Barber at ortho - patient did attend appointment. Original Note: telegraph office manager had message to schedule a follow up appointment for patient with ortho. telegraph office manager sent patients information to the front office staff at ortho. Patients information will be printed and reviewed. Clinic will call patient with appointment information.
== END 2022-04-20 19:09 | disposition home or self-care (01) ==
PROVIDERS: Emergency Provider Emergency Medicine
DX: S42.391A Other fracture of shaft of right humerus, initial encounter for closed fracture (principal); E11.9 Type 2 diabetes mellitus without complications; I10 Essential (primary) hypertension; Z86.73 Personal history of transient ischemic attack (TIA), and cerebral infarction without residual deficits; F17.210 Nicotine dependence, cigarettes, uncomplicated; W19.XXXA Unspecified fall, initial encounter
CPT/HCPCS: 73060; 99152; J1170; J1885; J2270; J2405; J2704; Q0162

== ENCOUNTER 2022-04-24 17:46 | Emergency (ER) | payer SELFPAY ==
[2022-04-24 18:30] VITALS: BP 158/97; PULSE 117; RESP 19; TEMP 36.8; O2SAT 98; BMI 33.0
--- NOTE | 2022-04-24 18:58 | XRR_ITS ---
PROCEDURE INFORMATION: Exam: XR Right Humerus Exam date and time: 04/24/2022 7:48 PM Age: 51 years old Clinical indication: Pain; Upper arm; Right; Additional info: Worsening pain/swelling TECHNIQUE: Imaging protocol: Radiologic exam of the Right humerus. Views: 2 or more views. COMPARISON: CR (UP EXM, ) 04/20/2022 5:11 PM FINDINGS: No change since the prior exam. Oblique fracture of the right mid humeral diaphysis is again noted. The distal fragment remained anteromedially displaced and medially angulated at the fracture site. No joint dislocation is visualized. XR/[place] [id number] IMPRESSION: No change since the prior exam. Right humeral fracture is again noted.
--- NOTE | 2022-04-24 20:34 | W.ED.EXTPRO ---
HPI - Extremity Problem General: Chief complaint: Extremity Injury, Upper Stated complaint: right arm pain, swelling Time Seen by Provider: 04/24/22 20:33 History of Present Illness: 51-year-old male patient comes in today with complaints of pain to the arm. Patient has a mid shaft humeral fracture that was splinted on Saturday last week. Patient was concerned due to the swelling in the hand. Distal pulses and sensation are intact. Patient also reports running out of his pain medication. Review of Systems General: Reports: 10 or more systems reviewed and unremarkable except in HPI and below Musc: Reports: extremity pain and extremity swelling PFS ED PFSH: Medical History Cervicalgia Diabetes Duodenal ulcer HTN (hypertension) Stroke Surgical History H/O esophagogastroduodenoscopy (~01/05/22) H/O esophagogastroduodenoscopy (02/21/22) Status post colonoscopy (02/21/22) Social History Smoking and tobacco status: current every day smoker Alcohol intake: current Physical Exam Const: COMMON NORMALS: alert Neck/C-Spine: COMMON NORMALS: full ROM Resp: COMMON NORMALS: normal respiratory effort Cardio: COMMON NORMALS: regular rate RATE: regular rate Extremity: NARRATIVE EXTREMITY EXAM: Swelling of the distal hand, positive pulses, prompt capillary refill. RIGHT UPPER EXTREMITY: Yes upper arm (Splint in place.) Right upper arm: Yes inspection, Yes palpation and Yes neurovascular exam Neuro: SENSORIUM/ORIENTATION: Yes alert Skin: COMMON NORMALS: no rashes or lesions noted GENERAL SKIN EXAM: no rashes or lesions noted Course Vital Signs: Vital signs: Vital Signs Temperature 98.2 F 04/24/22 18:30 Pulse Rate 117 H 04/24/22 18:30 Respiratory Rate 19 H 04/24/22 18:30 Blood Pressure 158/97 04/24/22 18:30 Pulse Oximetry 98 04/24/22 18:30 MDM - Extremity (Nontraumatic) Medical Decision Making 51-year-old male patient comes in today for complaints of being out of pain medication and increased swelling to the extremity. On exam distal pulses are intact, prompt capillary refill is noted, no redness or induration is noted in the skin. Vital signs are normal except for elevation in pulse at 170 and blood pressure at 158 systolic. Differential diagnosis out of pain medication, fracture of the humerus, dependent edema. X-ray of the arm showed midshaft fracture without any changes. Distal pulses and sensations were intact. Leave the swelling is more from dependent edema and secondary to the injury. Encourage elevation of the extremity is much as possible. Patient was given an injection of Toradol in the ER with 1, 10 mg hydrocodone acetaminophen tablet. Patient was also sent 1 home for tonight. Prescription was written for hydrocodone 5 mg?acetaminophen 325 mg, 1 tablet every 4 hours as needed for pain. Patient reported understanding of care plan need for follow-up with his appointment tomorrow with orthopedics. Lab Data Radiology Impressions Humerus X-Ray 04/24/22 18:58 IMPRESSION: No change since the prior exam. Right humeral fracture is again noted. Discharge Plan Discharge Patient Disposition: Home Clinical Impression: Fracture, humerus closed, shaft Qualifiers: Encounter type: subsequent encounter Fracture morphology: transverse Fracture alignment: displaced Laterality: right Fracture healing: with routine healing Qualified Code(s): S42.321D - Displaced transverse fracture of shaft of humerus, right arm, subsequent encounter for fracture with routine healing Condition: Stable Prescriptions: New hydrocodone-acetaminophen 5-325 mg tablet 1 tab PO Q4H PRN (Reason: pain) Qty: 20 0RF No Action omeprazole 20 mg capsule,delayed release(DR/EC) 20 mg PO DAILY PRN (Reason: Acid Reflux) 0RF oxycodone 5 mg tablet 5 mg PO Q4H PRN (Reason: pain) Qty: 20 0RF ondansetron 4 mg tablet,disintegrating 4 mg PO Q8H PRN (Reason: nausea and vomiting) Qty: 15 0RF methocarbamol 750 mg tablet 750 mg PO TID PRN (Reason: arm pain) Qty: 10 0RF Discharge Orders: Discharge ED (Routine); Ordered 04/24/22 Ordered By: Pranay Paz Discharge Diet: Usual diet Discharge Activity: Increase activity as tolerated Patient Instructions: Arm Fracture in Adults (ED), Opioid Safety Activity Restrictions/Additional Instructions: Activity as tolerated. Keep splint intact. Follow-up with orthopedics office tomorrow. Return to ER as needed. Coding Level of Care Code ED Vice President [employer] Relations for Rosalinda Choe
[2022-04-24] MEDS: ketorolac 60 mg/2 mL INJ IM (20:59)
[2022-04-24] MEDS: HYDROcodone-acetaminophen 10-325 mg Tablet 1 TAB PO ×2 (21:00→21:01)
== END 2022-04-24 21:45 | disposition home or self-care (01) ==
PROVIDERS: Emergency Provider Nurse Practitioner Family
DX: S42.321A Displaced transverse fracture of shaft of humerus, right arm, initial encounter for closed fracture (principal); E11.9 Type 2 diabetes mellitus without complications; I10 Essential (primary) hypertension; Z86.73 Personal history of transient ischemic attack (TIA), and cerebral infarction without residual deficits; F17.210 Nicotine dependence, cigarettes, uncomplicated; X58.XXXA Exposure to other specified factors, initial encounter
CPT/HCPCS: 73060; 96372; 99284; J1885

== ENCOUNTER → 2022-04-25 15:55 | Outpatient (BNVA) | payer SELFPAY | PROVIDERS: Referring Provider Emergency Medicine; Visit Provider Specialist | DX: S42.301A Unspecified fracture of shaft of humerus, right arm, initial encounter for closed fracture (principal); X58.XXXA Exposure to other specified factors, initial encounter | CPT/HCPCS: 73060 ==

== ENCOUNTER 2022-04-25 16:40 | Outpatient (CLI) | payer SELFPAY | END 2022-04-25 16:41 | disposition home or self-care (01) | LOC: SPT 16:41 | PROVIDERS: Visit Provider Specialist | DX: Z46.89 Encounter for fitting and adjustment of other specified devices (principal); S42.301D Unspecified fracture of shaft of humerus, right arm, subsequent encounter for fracture with routine healing; X58.XXXD Exposure to other specified factors, subsequent encounter | CPT/HCPCS: 97760; L3980 ==

== ENCOUNTER → 2022-04-26 09:11 | Outpatient (BNVA) | payer SELFPAY | PROVIDERS: Visit Provider Specialist | DX: S42.301A Unspecified fracture of shaft of humerus, right arm, initial encounter for closed fracture (principal); X58.XXXA Exposure to other specified factors, initial encounter | CPT/HCPCS: 73060 ==

== ENCOUNTER → 2022-05-14 07:46 | Outpatient (BNVA) | payer SELFPAY | PROVIDERS: Visit Provider Specialist | DX: S42.491A Other displaced fracture of lower end of right humerus, initial encounter for closed fracture (principal); X58.XXXA Exposure to other specified factors, initial encounter | CPT/HCPCS: 73060 ==

== ENCOUNTER → 2022-11-07 14:04 | Outpatient (BNVA) | payer MEDICAID, SELFPAY | PROVIDERS: Visit Provider Family Medicine | DX: K43.9 Ventral hernia without obstruction or gangrene (principal); F10.20 Alcohol dependence, uncomplicated; I10 Essential (primary) hypertension; G56.31 Lesion of radial nerve, right upper limb; Z68.33 Body mass index [BMI] 33.0-33.9, adult; N52.9 Male erectile dysfunction, unspecified; F32.0 Major depressive disorder, single episode, mild | CPT/HCPCS: 80053; 80061; 83036; 83690; 85025 ==